=== PATIENT | male | born 1980 | race Caucasian/White ===

== ENCOUNTER 2021-04-08 21:29 | Emergency (ER) | payer SELFPAY ==
[~2021-04-08] VITALS: Ht 170.2 cm; Wt 79.4 kg
--- NOTE | 2021-04-08 22:28 | NUR ---
INSURANCE BILLING CLERK AT BEDSIDE FOR BLOOD DRAW
--- NOTE | 2021-04-08 22:32 | NUR ---
COVID SWAB COLLECTED AND SENT TO LAB
[2021-04-08] MEDS ORDERED: LIDOCAINE 2% JEL UROJET 10 ML MM ONE ×2 (22:37→23:00)
--- NOTE | 2021-04-08 22:46 | NUR ---
URINE COLLECTED AND SENT TO LAB
[2021-04-08 22:57] LABS: BASOPHILS # (AUTO) 0.1 /CMM (0.0-0.2); BASOPHILS % (AUTO) 0.9 % (0.0-2.0); EOSINOPHILS % (AUTO) 3.6 % (0.0-6.0); HEMATOCRIT 39 % (39-51); HEMOGLOBIN 12.9 g/dL (13.5-17.5); LYMPHOCYTES % (AUTO) 18.9 % (20.0-44.0); MEAN CORPUSCULAR HGB CONC 34 g/dl (31.0-36.0); MEAN CORPUSCULAR VOLUME 92 fL (80-96); MONOCYTES # (AUTO) 0.9 /CMM (0.1-1.30); NEUTROPHILS % (AUTO) 67.6 % (43.0-81.0); PLATELET COUNT (AUTO) 326 /CMM (150-450); WHITE BLOOD COUNT (AUTO) 10.4 K/uL (4.3-11.0)
[2021-04-08 23:26] LABS: CALCIUM, SERUM 8.7 mg/dL (8.5-10.1)
[2021-04-08 23:28] LABS: BILIRUBIN,URINE Negative (NEGATIVE); COLOR,URINE YELLOW (YELLOW); LEUKOCYTE ESTERASE ,URINE Negative (NEGATIVE); NITRITE, URINE Negative (NEGATIVE); PROTEIN,URINE Negative (NEGATIVE); UGLUCOSE Negative (NEGATIVE); UROBILINOGEN,URINE 0.2 EU/dL (0.2)
[2021-04-08 23:36] LABS: ALBUMIN 3.1 g/dL (3.4-5.0); BILIRUBIN,DIRECT 0.1 mg/dL (0.0-0.2); BILIRUBIN,TOTAL 0.2 mg/dL (0.2-1.0); TOTAL PROTEIN, SERUM 6.3 g/dL (6.4-8.2)
--- NOTE | 2021-04-09 00:10 | NUR ---
per lab, covid negative
--- NOTE | 2021-04-09 00:20 | NUR ---
BANK MESSENGER CALLED, PT ON [id number], [facility] ON THE WAY
[2021-04-09 00:25] LABS: BACTERIA,URINE None seen /HPF (None Seen); RBC,URINE 0-2 /HPF (0-2); SQUAMOUS EPITHELIAL CELL,UR Few /HPF (None Seen); URINE AMORPHOUS URATE Few /HPF (None Seen); WBC,URINE 0-2 /HPF (0-3)
--- NOTE | 2021-04-09 01:22 | NUR ---
[facility] CRISIS FURNACE REPAIRER AT BEDSIDE
[2021-04-09] MEDS ORDERED: POTASSIUM CHLORIDE 20 MEQ TAB.PRT.SR PO ONE ×2 (01:41)
--- NOTE | 2021-04-09 16:39 | NUR ---
patient in bed, in no distress, and verbalized "i am not suicidal/HI". MD notified and aware.
--- NOTE | 2021-04-09 16:44 | NUR ---
called [facility] crisis nurse to talk to patient.
--- NOTE | 2021-04-09 17:01 | NUR ---
[facility] WILL COME AND TALK TO PT AFTER INSURANCE INFO HAS BEEN UPDATED
[2021-04-09] MEDS ORDERED: OLANZAPINE 10 MG VIAL IM ONE ×2 (19:30→19:35)
--- NOTE | 2021-04-10 07:31 | NUR ---
ASSESSED PT ON BED ASLEEP EASILY AROUSABLE, NOT IN RESPIRATORY DISTRESS, V/S STABLE, KEPT RESTED AND COMFORTABLE. WILL CONTINUE TO MONITOR.
[2021-04-10] MEDS ORDERED: OLANZAPINE ZYDIS 5 MG TAB.RAPDIS PO ONE (17:00)
[2021-04-10] MEDS ORDERED: OLANZAPINE ZYDIS 5 MG TAB.RAPDIS ONE (17:39)
[2021-04-10 18:06] VITALS: BP 128/77
--- NOTE | 2021-04-10 18:08 | NUR ---
Patient given written and verbal discharge instructions. Patient verbalizes understanding of instructions. Patient is ambulatory with steady gait. Refuses offer of retirement placement. Patient given list of available shelters in surrounding area. patient verbalized "i am not suicidal anymore".
== END 2021-04-10 18:08 | disposition home or self-care (01) ==
LOC: ER 21:31
DX: R45.851 Suicidal ideations (principal); F39 Unspecified mood [affective] disorder; F25.9 Schizoaffective disorder, unspecified; Z59.0 Homelessness; F19.10 Other psychoactive substance abuse, uncomplicated; F12.10 Cannabis abuse, uncomplicated; F15.10 Other stimulant abuse, uncomplicated; Z20.822 Contact with and (suspected) exposure to COVID-19
CPT/HCPCS: 36415; 80048; 80076; 80143; 80307; 80320; 81001; 85025; 87426; 96372; 99285; C9803; J3490 ×2; G0480